=== PATIENT | male | born 1955 | race Caucasian/White ===

== ENCOUNTER → 2016-07-25 | Outpatient (CLI) | payer BC ==
--- NOTE | 2016-07-25 18:45 | MR ---
EXAMINATION TYPE: MR brain wo con DATE OF EXAM: 07/25/2016 3:37 PM COMPARISON: NONE HISTORY: Dizzy , Loss of Balance, Memory Loss, hearing loss both sides T1-weighted sagittal, T2, FLAIR, and diffusion axial, and T2 coronal coronal views of the brain are s ubmitted. There is no evidence of acute ischemia. The ventricles, basal cisterns, and sulci overlying the conv exities are consistent with the patient's age. There is no mass effect. Changes of chronic sinusitis noted. Craniocervical junction maintained. Sella turcica has a normal ap pearance. Findings suggest chronic right mastoiditis. There are a few scattered areas of abnormal signal within the white matter bilaterally which are not nonspecific. Small focal areas of abnormal signal involving the reynold most likely in the basis of tiny remote infar ction. IMPRESSION: 1. No acute intracranial process. 2. Nonspecific mild white matter changes. Remote microvascular ischemia favored over demyelinating di sease. Correlate clinically.
== END ==
LOC: RADMRIMAIN 14:34
PROVIDERS: ATTEND Psychiatry & Neurology Neurology
DX: F07.81 Postconcussional syndrome (principal)
CPT/HCPCS: 70551

== ENCOUNTER 2017-04-21 19:05 | Inpatient (IN) | payer BC ==
[2017-04-21] MEDS ORDERED: HYDROmorphone 1 MG/ML 1 ML SYRINGE IVP STA ×2 (19:27→21:12)
[2017-04-21] MEDS ORDERED: SODIUM CHLORIDE 0.9% 1,000 ML IV ONE (19:27)
[2017-04-21] MEDS ORDERED: SODIUM CHLORIDE 0.9% 500 ML IV ONE (19:27)
[2017-04-21] MEDS ORDERED: ONDANSETRON 4 MG/2 ML VIAL IVP STA (19:27)
[2017-04-21] MEDS ORDERED: RX INFO: IV CONTRAST WAS GIVEN 1 EACH MISC MISCELLANE PRN (19:29)
[2017-04-21] MEDS ORDERED: DIPH,PERTUS(ACELL)TETVAC-LF 0.5 ML VIAL IM ONE (19:29)
--- NOTE | 2017-04-21 20:17 | CT ---
EXAMINATION TYPE: CT ChestAbdPelvis w con DATE OF EXAM: 04/21/2017 COMPARISON: NONE HISTORY: Fall from roof. Back pain, left humeral pain, posterior head injury. CT DLP: 1051.80 mGycm Automated exposure control for dose reduction was used. CONTRAST: CT scan of the chest, abdomen and pelvis is performed without Oral Contrast and with IV Contrast, pat ient injected with 100 mL of Omnipaque 300. FINDINGS: The lungs are clear of infiltrate. There is no evidence of pleural effusion or pneumothorax. There is mild atelectasis at the left lateral lung base. Heart size is normal. Thoracic aorta is intact. Ther e is no mediastinal adenopathy. Liver spleen pancreas gallbladder appear normal. Bile ducts are not dilated. There is a 1 cm nodule in the left adrenal gland. Kidneys show satisfactory contrast opacification. T here is no hydronephrosis. There is no retroperitoneal adenopathy. There is no ascites. Appendix appears normal. There are numerous diverticula in the sigmoid colon. I see no intestinal wal l thickening. There are no dilated loops. Bladder distends smoothly. I see no pelvic mass. Thoracic a nd lumbar spine are intact. I see no rib fracture. Bony pelvis is intact. There is subcutaneous densi ty over the lower lumbar spine and pelvis. IMPRESSION: Subcutaneous posterior density over the pelvis is consistent with bruising. No fracture. No acute abnormality within the chest abdomen and pelvis.
[2017-04-21 20:34] LABS: Basophils # (A) 0.1 k/uL (0-0.2); Basophils % (A) 1 %; CH 27.4; CHCM 33.2; Eosinophils # (A) 0.2 k/uL (0-0.7); Eosinophils % (A) 2 %; HCT 39.3 % (39.0-53.0); HDW 2.69; HGB 13.3 gm/dL (13.0-17.5); Luc # (Auto) 0.17; Luc % (Auto) 2; Lymphocytes # (A) 2.3 k/uL (1.0-4.8); Lymphocytes % (A) 30 %; MCH 28.2 pg (25.0-35.0); MCV 82.9 fL (80.0-100.0); Mean Platelet Volume 7.8; Monocytes # (A) 0.4 k/uL (0-1.0); Monocytes % (A) 6 %; Neutrophils # (A) 4.7 k/uL (1.3-7.7); Neutrophils % (A) 60 %; RBC 4.74 m/uL (4.30-5.90); RDW 13.9 % (11.5-15.5); WBC 7.8 k/uL (3.8-10.6); WBC (Perox) 7.92
[2017-04-21 20:35] LABS: INR 1.1 (<1.2); Prothrombin Time 10.6 sec (9.0-12.0)
[2017-04-21 20:38] LABS: ALT 71 U/L (21-72); AST 45 U/L (17-59); Alcohol <10 mg/dL; Alkaline Phosphatase 70 U/L (38-126); Anion Gap 9 mmol/L; Blood Urea Nitrogen 18 mg/dL (9-20); Calcium 9.3 mg/dL (8.4-10.2); Carbon Dioxide 24 mmol/L (22-30); Chloride 106 mmol/L (98-107); Glucose 130 mg/dL (74-99); Non-African American GFR(MDRD) >60 (>60 ml/min/1.73 sqM); Potassium 4.2 mmol/L (3.5-5.1); Sodium 139 mmol/L (137-145); Total Bilirubin 0.6 mg/dL (0.2-1.3); Total Protein 7.4 g/dL (6.3-8.2)
[2017-04-21 20:55] LABS: Creatine Kinase 127 U/L (55-170)
[2017-04-21 21:06] LABS: Creatine Kinase MB 0.9 ng/mL (0.0-2.4); Troponin I <0.012 ng/mL (0.000-0.034)
--- NOTE | 2017-04-21 21:21 | CT ---
EXAMINATION TYPE: CT brain teo gzumán DATE OF EXAM: 04/21/2017 COMPARISON: NONE HISTORY: Fall from roof. Back pain, left humeral pain, posterior head injury. CT DLP: 1665.10 mGycm Automated exposure control for dose reduction was used. TECHNIQUE: CT scan of the head and cervical spine are performed without contrast. FINDINGS: There is some cerebral cortical atrophy. There is no mass effect nor midline shift. There is no sign of intracranial hemorrhage. The calvarium is intact. Cervical vertebra have normal alignment. There is hypertrophic anterior spurring from C4 to C7. Facet joints are intact. Skull base appears intact. There is no evidence of a fracture. There is endplate spur formation and cervical bony spinal stenosis at C3-4 C4-5. IMPRESSION: Mild atrophy. No acute intracranial abnormality. Spondylotic changes in the cervical spine. Mild cervical bony spinal stenosis. No fracture.
[2017-04-21 21:36] LABS: Appearance,Urine Clear (Clear); Bilirubin,Urine Negative (Negative); Glucose,Urine (UA) Negative (Negative); Ketones,Urine Negative (Negative); Leukocyte Esterase,Urine Negative (Negative); Nitrite,Urine Negative (Negative); PH, Urine 5.5 (5.0-8.0); Protein,Urine Trace (Negative); UA Billing (MACRO vs. MICRO) CHEM; Urobilinogen,Urine <2.0 mg/dL (<2.0)
[2017-04-21] MEDS ORDERED: KETOROLAC 30 MG/ML 1 ML VIAL IVP STA (21:43)
--- NOTE | 2017-04-21 21:56 | XR ---
EXAMINATION TYPE: XR pelvis AP view DATE OF EXAM: 04/21/2017 COMPARISON: NONE HISTORY: Pain TECHNIQUE: Single view FINDINGS: There is some narrowing of hip joint spaces. Pelvic ring is intact. I see no fracture. Ther e is contrast in the urinary bladder. IMPRESSION: Osteoarthritis in both hip joints. No fracture.
--- NOTE | 2017-04-21 21:58 | XR ---
EXAMINATION TYPE: XR chest 1V portable DATE OF EXAM: 04/21/2017 COMPARISON: 08/27/2012 HISTORY: Fell from the roof TECHNIQUE: Single frontal view of the chest is obtained. FINDINGS: There is some mild infiltrate at the lateral left lung base. Heart size is normal. There i s no pneumothorax. I see no definite pleural effusion. There is no heart failure. IMPRESSION: Mild pleural reaction at the left lung base is new compared to old exam. Normal heart.
--- NOTE | 2017-04-21 23:19 | ED ---
Fall HPI - General Chief Complaint: Fall Stated Complaint: Fall from roof Time Seen by Provider: 04/21/17 19:23 Source: patient, EMS Mode of arrival: EMS - History of Present Illness Initial Comments: 62 years old male he was in the bathroom of his house, he according to him he fell from a height of 78 when he was cleaning the coronaries. He landed on his back no complaining about the headache neck pain and the back pain there was a period of loss of consciousness. He denies any nausea any vomiting no chest pain or shortness of breath is complaining about the back pain, no neuro deficits - Related Data Home Medications Medication Instructions Recorded Confirmed Sertraline [Zoloft] 150 mg PO DAILY 09/13/16 04/22/17 metFORMIN HCL [Glucophage] 500 mg PO TID 09/13/16 04/22/17 Gabapentin [Neurontin] 100 mg PO HS 04/21/17 04/22/17 Pentoxifylline [TRENtal] 400 mg PO AC-TID 04/21/17 04/22/17 Previous Rx's Medication Instructions Recorded Docusate [Colace] 100 mg PO BID #60 cap 04/24/17 HYDROcodone/APAP 5-325MG [[place] 1 each PO Q4HR PRN #30 tab 04/24/17 5-325] Ibuprofen [Motrin] 400 mg PO Q6HR PRN tab 04/24/17 Meclizine [Antivert] 12.5 mg PO BID #60 tab 04/24/17 Polyethylene Glycol 3350 [Miralax] 17 gm PO DAILY PRN #30 pack 04/24/17 Allergies Allergy/AdvReac Type Severity Reaction Status Date / Time No Known Allergies Allergy Verified 04/22/17 00:19 Review of Systems ROS Statement: Those systems with pertinent positive or pertinent negative responses have been documented in the HPI. ROS Other: All systems not noted in ROS Statement are negative. Past Medical History Past Medical History: Diabetes Mellitus, Osteoarthritis (OA) Additional Past Medical History / Comment(s): UMBILICAL HERNIA, HEPATITIS C CARRIER., HX OF WAR INJURIES -MISSING 2 FINGERS RIGHT HAND, INJURY RIGHT SHOULDER AND SCHRAPNEL-HE WAS IN A COMA FOR 45 DAYS. History of Any Multi-Drug Resistant Organisms: None Reported Additional Past Surgical History / Comment(s): SURGERY DUE TO WAR INJURIES-2 FINGERS RIGHT HAND , RIGHT SHOULDER SURGERY AND SHRAPNEL REMOVAL. , COLONOSCOPY. Past Anesthesia/Blood Transfusion Reactions: Previous Problems w/ Anesthesia Additional Past Anesthesia/Blood Transfusion Reaction / Comment(s): DIFFICULTY WAKING UP AFTER COLONOSCOPY. Past Psychological History: Depression Smoking Status: Current every day smoker Past Alcohol Use History: Occasional Past Drug Use History: None Reported - Past Family History Brother(s) Family Medical History: Cancer, Diabetes Mellitus General Exam - General Exam Comments Initial Comments: General: The patient is awake and alert, severe pain and distress him a GCS is, Skin: Skin is warm and dry and no rashes or lesions are noted. Eye: Pupils are equal, round and reactive to light, extra-ocular movements are intact; there is normal conjunctiva bilaterally. Ears, nose, mouth and throat: There are moist mucous membranes and no oral lesions. Neck: The neck is tender at C4 and C5. Cardiovascular: There is a regular rate and rhythm. No murmur, rub or gallop is appreciated. Respiratory: To auscultation bilateral, no wheezing no rhonchi no distress respiratory webster noticed Gastrointestinal: Soft, non-distended, non-tender abdomen without masses or organomegaly noted. There is no rebound or guarding present. Bowel sounds are unremarkable. Back: There is tender at the lumbar spine and the lower thoracic spine Musculoskeletal: Mildly tender over the proximal humerus him a no neuro vascular deficit noticed. Neurological: CN II-XII intact, Cranial nerves III through XII are intact. There are no obvious motor or sensory deficits. Coordination appears grossly intact. Speech is normal. Psychiatric: Cooperative, he is in pain but psych exam is unremarkable Limitations: no limitations Course Vital Signs 04/21/17 04/21/17 04/21/17 19:16 19:45 20:05 Temperature 98.1 F Pulse Rate 53 L 63 59 L Pulse Rate [ Left Pulse Oximetery] Respiratory 18 18 18 Rate Blood Pressure 106/60 121/62 144/79 Blood Pressure [Left Arm] O2 Sat by Pulse 96 96 97 Oximetry 04/21/17 04/21/17 04/21/17 21:29 21:51 23:41 Temperature 97.8 F Pulse Rate 56 L 69 70 Pulse Rate [ Left Pulse Oximetery] Respiratory 18 18 18 Rate Blood Pressure 115/56 148/73 101/63 Blood Pressure [Left Arm] O2 Sat by Pulse 97 97 97 Oximetry 04/22/17 00:00 Temperature 97.9 F Pulse Rate Pulse Rate [ 72 Left Pulse Oximetery] Respiratory 18 Rate Blood Pressure Blood Pressure 113/62 [Left Arm] O2 Sat by Pulse 93 L Oximetry Patient Anya from CT, his CT of the head and neck is unremarkable, CT abdomen and and pelvis is unremarkable no fracture noticed considering his wall patient be admitted overnight to Dr. Harper service Medical Decision Making - Lab Data Result diagrams: 04/23/17 07:07 04/23/17 07:07 Lab Results 04/21/17 04/21/17 04/21/17 Range/Units 19:15 19:15 19:15 WBC 7.8 (3.8-10.6) k/uL RBC 4.74 (4.30-5.90) m/uL Hgb 13.3 (13.0-17.5) gm/dL Hct 39.3 (39.0-53.0) % MCV 82.9 (80.0-100.0) fL MCH 28.2 (25.0-35.0) pg MCHC 34.0 (31.0-37.0) g/dL RDW 13.9 (11.5-15.5) % Plt Count 148 L (150-450) k/uL Neutrophils % 60 % Lymphocytes % 30 % Monocytes % 6 % Eosinophils % 2 % Basophils % 1 % Neutrophils # 4.7 (1.3-7.7) k/uL Lymphocytes # 2.3 (1.0-4.8) k/uL Monocytes # 0.4 (0-1.0) k/uL Eosinophils # 0.2 (0-0.7) k/uL Basophils # 0.1 (0-0.2) k/uL PT (9.0-12.0) sec INR (<1.2) APTT (22.0-30.0) sec Sodium 139 (137-145) mmol/L Potassium 4.2 (3.5-5.1) mmol/L Chloride 106 (98-107) mmol/L Carbon Dioxide 24 (22-30) mmol/L Anion Gap 9 mmol/L BUN 18 (9-20) mg/dL Creatinine 1.07 (0.66-1.25) mg/dL Est GFR (MDRD) Af Amer >60 (>60 ml/min/1.73 sqM) Est GFR (MDRD) Non-Af >60 (>60 ml/min/1.73 sqM) Glucose 130 H (74-99) mg/dL POC Glucose (mg/dL) (75-99) mg/dL POC Glu Stair Builder ID Calcium 9.3 (8.4-10.2) mg/dL Total Bilirubin 0.6 (0.2-1.3) mg/dL AST 45 (17-59) U/L ALT 71 (21-72) U/L Alkaline Phosphatase 70 (38-126) U/L Total Creatine Kinase (55-170) U/L CK-MB (CK-2) (0.0-2.4) ng/mL CK-MB (CK-2) Rel Index Troponin I (0.000-0.034) ng/mL Total Protein 7.4 (6.3-8.2) g/dL Albumin 4.2 (3.5-5.0) g/dL Urine Color Urine Appearance (Clear) Urine pH (5.0-8.0) Ur Specific Alta (1.001-1.035) Urine Protein (Negative) Urine Glucose (UA) (Negative) Urine Ketones (Negative) Urine Blood (Negative) Urine Nitrite (Negative) Urine Bilirubin (Negative) Urine Urobilinogen (<2.0) mg/dL Ur Leukocyte Esterase (Negative) Urine Opiates Screen (NotDetected) Ur Oxycodone Screen (NotDetected) Urine Methadone Screen (NotDetected) Ur Propoxyphene Screen (NotDetected) Ur Barbiturates Screen (NotDetected) U Tricyclic Antidepress (NotDetected) Ur Phencyclidine Scrn (NotDetected) Ur Amphetamines Screen (NotDetected) U Methamphetamines Scrn (NotDetected) U Benzodiazepines Scrn (NotDetected) Urine Cocaine Screen (NotDetected) U Marijuana (THC) Screen (NotDetected) Serum Alcohol <10 mg/dL Blood Type A Positive Blood Type Confirm Blood Type Recheck CABO Indicated Antibody Screen NEGATIVE Spec Expiration Date 04/24/2017 - 231404/21/17 04/21/17 04/21/17 Range/Units 19:15 19:15 21:33 WBC (3.8-10.6) k/uL RBC (4.30-5.90) m/uL Hgb (13.0-17.5) gm/dL Hct (39.0-53.0) % MCV (80.0-100.0) fL MCH (25.0-35.0) pg MCHC (31.0-37.0) g/dL RDW (11.5-15.5) % Plt Count (150-450) k/uL Neutrophils % % Lymphocytes % % Monocytes % % Eosinophils % % Basophils % % Neutrophils # (1.3-7.7) k/uL Lymphocytes # (1.0-4.8) k/uL Monocytes # (0-1.0) k/uL Eosinophils # (0-0.7) k/uL Basophils # (0-0.2) k/uL PT 10.6 (9.0-12.0) sec INR 1.1 (<1.2) APTT 23.0 (22.0-30.0) sec Sodium (137-145) mmol/L Potassium (3.5-5.1) mmol/L Chloride (98-107) mmol/L Carbon Dioxide (22-30) mmol/L Anion Gap mmol/L BUN (9-20) mg/dL Creatinine (0.66-1.25) mg/dL Est GFR (MDRD) Af Amer (>60 ml/min/1.73 sqM) Est GFR (MDRD) Non-Af (>60 ml/min/1.73 sqM) Glucose (74-99) mg/dL POC Glucose (mg/dL) (75-99) mg/dL POC Glu Stair Builder ID Calcium (8.4-10.2) mg/dL Total Bilirubin (0.2-1.3) mg/dL AST (17-59) U/L ALT (21-72) U/L Alkaline Phosphatase (38-126) U/L Total Creatine Kinase 127 (55-170) U/L CK-MB (CK-2) 0.9 (0.0-2.4) ng/mL CK-MB (CK-2) Rel Index 0.7 Troponin I <0.012 (0.000-0.034) ng/mL Total Protein (6.3-8.2) g/dL Albumin (3.5-5.0) g/dL Urine Color Yellow Urine Appearance Clear (Clear) Urine pH 5.5 (5.0-8.0) Ur Specific Alta 1.050 H (1.001-1.035) Urine Protein Trace H (Negative) Urine Glucose (UA) Negative (Negative) Urine Ketones Negative (Negative) Urine Blood Negative (Negative) Urine Nitrite Negative (Negative) Urine Bilirubin Negative (Negative) Urine Urobilinogen <2.0 (<2.0) mg/dL Ur Leukocyte Esterase Negative (Negative) Urine Opiates Screen Not Detected (NotDetected) Ur Oxycodone Screen Not Detected (NotDetected) Urine Methadone Screen Not Detected (NotDetected) Ur Propoxyphene Screen Not Detected (NotDetected) Ur Barbiturates Screen Not Detected (NotDetected) U Tricyclic Antidepress Not Detected (NotDetected) Ur Phencyclidine Scrn Not Detected (NotDetected) Ur Amphetamines Screen Not Detected (NotDetected) U Methamphetamines Scrn Not Detected (NotDetected) U Benzodiazepines Scrn Not Detected (NotDetected) Urine Cocaine Screen Not Detected (NotDetected) U Marijuana (THC) Screen Not Detected (NotDetected) Serum Alcohol mg/dL Blood Type Blood Type Confirm Blood Type Recheck Antibody Screen Spec Expiration Date 04/21/17 04/22/17 04/22/17 Range/Units 23:46 06:58 11:57 WBC (3.8-10.6) k/uL RBC (4.30-5.90) m/uL Hgb (13.0-17.5) gm/dL Hct (39.0-53.0) % MCV (80.0-100.0) fL MCH (25.0-35.0) pg MCHC (31.0-37.0) g/dL RDW (11.5-15.5) % Plt Count (150-450) k/uL Neutrophils % % Lymphocytes % % Monocytes % % Eosinophils % % Basophils % % Neutrophils # (1.3-7.7) k/uL Lymphocytes # (1.0-4.8) k/uL Monocytes # (0-1.0) k/uL Eosinophils # (0-0.7) k/uL Basophils # (0-0.2) k/uL PT (9.0-12.0) sec INR (<1.2) APTT (22.0-30.0) sec Sodium (137-145) mmol/L Potassium (3.5-5.1) mmol/L Chloride (98-107) mmol/L Carbon Dioxide (22-30) mmol/L Anion Gap mmol/L BUN (9-20) mg/dL Creatinine (0.66-1.25) mg/dL Est GFR (MDRD) Af Amer (>60 ml/min/1.73 sqM) Est GFR (MDRD) Non-Af (>60 ml/min/1.73 sqM) Glucose (74-99) mg/dL POC Glucose (mg/dL) 223 H 276 H (75-99) mg/dL POC Glu Stair Builder ID Zoila Duron Yolanda Calcium (8.4-10.2) mg/dL Total Bilirubin (0.2-1.3) mg/dL AST (17-59) U/L ALT (21-72) U/L Alkaline Phosphatase (38-126) U/L Total Creatine Kinase (55-170) U/L CK-MB (CK-2) (0.0-2.4) ng/mL CK-MB (CK-2) Rel Index Troponin I (0.000-0.034) ng/mL Total Protein (6.3-8.2) g/dL Albumin (3.5-5.0) g/dL Urine Color Urine Appearance (Clear) Urine pH (5.0-8.0) Ur Specific [place] (1.001-1.035) Urine Protein (Negative) Urine Glucose (UA) (Negative) Urine Ketones (Negative) Urine Blood (Negative) Urine Nitrite (Negative) Urine Bilirubin (Negative) Urine Urobilinogen (<2.0) mg/dL Ur Leukocyte Esterase (Negative) Urine Opiates Screen (NotDetected) Ur Oxycodone Screen (NotDetected) Urine Methadone Screen (NotDetected) Ur Propoxyphene Screen (NotDetected) Ur Barbiturates Screen (NotDetected) U Tricyclic Antidepress (NotDetected) Ur Phencyclidine Scrn (NotDetected) Ur Amphetamines Screen (NotDetected) U Methamphetamines Scrn (NotDetected) U Benzodiazepines Scrn (NotDetected) Urine Cocaine Screen (NotDetected) U Marijuana (THC) Screen (NotDetected) Serum Alcohol mg/dL Blood Type Blood Type Confirm A Positive Blood Type Recheck Antibody Screen Spec Expiration Date Disposition Clinical Impression: Fall, Back injury, Neck pain, Shoulder pain Disposition: HOME SELF-CARE Condition: Good
[2017-04-21] MEDS ORDERED: ACETAMINOPHEN TAB 325 MG TAB PO PRN (23:20)
[2017-04-21] MEDS ORDERED: ONDANSETRON 4 MG/2 ML VIAL IVP PRN (23:20)
[2017-04-21] MEDS ORDERED: NALOXONE 0.4 MG/ML 1 ML VIAL IV PRN (23:20)
[2017-04-21] MEDS ORDERED: IBUPROFEN 400 MG TAB PO PRN (23:20)
--- NOTE | 2017-04-21 23:43 | XR ---
EXAMINATION TYPE: XR humerus LT DATE OF EXAM: 04/21/2017 COMPARISON: NONE HISTORY: Pain TECHNIQUE: 3 views FINDINGS: There is spurring on the olecranon process of the ulna. Shoulder joint and elbow joint appe ar intact. I see no fracture. IMPRESSION: Negative left humerus exam
[2017-04-21] MEDS: HYDROmorphone 0.5 MG/0.5 ML SYRINGE IVP PRN (23:59)
[2017-04-22 00:27] VITALS: BMI 25.7
[2017-04-22] MEDS: HYDROcodone/APAP 5-325MG 1 EACH TAB PO PRN ×5 (00:48→22:37)
[2017-04-22] MEDS: HYDROmorphone 0.5 MG/0.5 ML SYRINGE IVP PRN ×5 (02:47→19:44)
[2017-04-22 07:00] LABS: Glucose,Whole Blood 223 mg/dL (75-99)
--- NOTE | 2017-04-22 08:45 | P.GSHP ---
History of Present Illness H&P Date: 04/22/17 Chief Complaint: injuries from a fall. the recent is a 62-year-old white male who late yesterday evening fell from his roof. He was cleaning his gutters. He fell about 7-8 feet on his back. Mostly had some low back pain apparently quite severe. He is not sure. Loss consciousness but he thinks it the was less than a minute or so. He was brought to the emergency room. Had generalized aches and pains mostly in his lower back. No chest pain no abdominal pain no nausea or vomiting. Mild headache. He does complain of a little blurred vision. Has had chronic numbness of his feet but he thinks it maybe a little worse. He had a CT of the head and neck C-spine back the chest and abdomen and pelvis all of which were essentially negative. No acute fractures were noted. No intrathoracic or abdominal injuries were noted. Was admitted for observation. He still complains of some low back pain since his admission. He is tolerated a full meal this morning. Past history positive for diabetes mellitus depression. Medications include Zoloft metformin Neurontin Trental. Also has osteoarthritis. Had umbilical hernia repair. Has a history of hep C. Other surgery includes colonoscopy. 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 Right shoulder surgery. Had a colonoscopy in the past. Family history diabetes mellitus. The social history patient is . Smokes about a pack a day. Drinks alcohol occasionally. ALLERGIES none known. Systems review as above. No chest pain. No cough hemoptysis. No significant cardiac issues. No GI problems. No urinary symptoms. On examination the patient is awake alert in no distress. Head and neck are normal. Pupils are equal and reactive. Oral cavity is normal. No deviation of his tongue. Neck is supple with no tenderness no mass or organomegaly or lymphadenopathy. Heart regular rhythm lungs are clear to P&A. Abdomen is very soft and benign and nontender no mass or organomegaly. Back reveals tenderness mostly in the lower lumbar region and coccygeal area. The may have a little bruising. No big hematoma. Extremities has a superficial abrasion on his right elbow. Otherwise has full motion of his extremities. Good extremity pulses. 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 No focal deficits. X-rays were reviewed and reported as above. Hemoglobin is good. Urinalysis is normal. Impression. Low back injury from a fall. Questionable loss of consciousness and blurred vision. History of diabetes mellitus. Osteoarthritis. Depression. Recommendation. We will obtained a consult from primary care physician Dr. Muro to medical management. Also neurology. Possibly discharge in the next day or so of transfer to medical service. Past Medical History Past Medical History: Diabetes Mellitus, Osteoarthritis (OA) Additional Past Medical History / Comment(s): UMBILICAL HERNIA, HEPATITIS C CARRIER., HX OF WAR INJURIES -MISSING 2 FINGERS RIGHT HAND, INJURY RIGHT SHOULDER AND SCHRAPNEL-HE WAS IN A COMA FOR 45 DAYS. History of Any Multi-Drug Resistant Organisms: None Reported Additional Past Surgical History / Comment(s): SURGERY DUE TO WAR INJURIES-2 FINGERS RIGHT HAND , RIGHT SHOULDER SURGERY AND SHRAPNEL REMOVAL. , COLONOSCOPY. Past Anesthesia/Blood Transfusion Reactions: Previous Problems w/ Anesthesia Additional Past Anesthesia/Blood Transfusion Reaction / Comment(s): DIFFICULTY WAKING UP AFTER COLONOSCOPY. Past Psychological History: Depression Smoking Status: Current every day smoker Past Alcohol Use History: Occasional Additional Past Alcohol Use History / Comment(s): SMOKING SINCE 16 YRS OLD- QUIT FOR 5 YEARS. CURRENTLY SMOKING 3 CIGARETTES PER DAY. Past Drug Use History: None Reported - Past Family History Brother(s) Family Medical History: Cancer, Diabetes Mellitus Medications and Allergies Home Medications Medication Instructions Recorded Confirmed Type Sertraline [Zoloft] 150 mg PO DAILY 09/13/16 04/22/17 History metFORMIN HCL [Glucophage] 500 mg PO TID 09/13/16 04/22/17 History Gabapentin [Neurontin] 100 mg PO HS 04/21/17 04/22/17 History Pentoxifylline [TRENtal] 400 mg PO AC-TID 04/21/17 04/22/17 History Allergies Allergy/AdvReac Type Severity Reaction Status Date / Time No Known Allergies Allergy Verified 04/22/17 00:19 Surgical - Exam Vital Signs Temp Pulse Resp BP Pulse Ox 98.1 F 53 L 18 106/60 96 04/21/17 19:16 04/21/17 19:16 04/21/17 19:16 04/21/17 19:16 04/21/17 19:16 Results - Labs 04/21/17 19:15 04/21/17 19:15 Abnormal Lab Results - Last 24 Hours (Table) 04/21/17 04/21/17 04/21/17 Range/Units 19:15 19:15 21:33 Plt Count 148 L (150-450) k/uL Glucose 130 H (74-99) mg/dL POC Glucose (mg/dL) (75-99) mg/dL Ur Specific Maribel 1.050 H (1.001-1.035) Urine Protein Trace H (Negative) 04/22/17 Range/Units 06:58 Plt Count (150-450) k/uL Glucose (74-99) mg/dL POC Glucose (mg/dL) 223 H (75-99) mg/dL Ur Specific Maribel (1.001-1.035) Urine Protein (Negative) Diabetes panel 04/21/17 Range/Units 19:15 Sodium 139 (137-145) mmol/L Potassium 4.2 (3.5-5.1) mmol/L Chloride 106 (98-107) mmol/L Carbon Dioxide 24 (22-30) mmol/L BUN 18 (9-20) mg/dL Creatinine 1.07 (0.66-1.25) mg/dL Glucose 130 H (74-99) mg/dL Calcium 9.3 (8.4-10.2) mg/dL AST 45 (17-59) U/L ALT 71 (21-72) U/L Alkaline Phosphatase 70 (38-126) U/L Total Protein 7.4 (6.3-8.2) g/dL Albumin 4.2 (3.5-5.0) g/dL Calcium panel 04/21/17 Range/Units 19:15 Calcium 9.3 (8.4-10.2) mg/dL Albumin 4.2 (3.5-5.0) g/dL Pituitary panel 04/21/17 Range/Units 19:15 Sodium 139 (137-145) mmol/L Potassium 4.2 (3.5-5.1) mmol/L Chloride 106 (98-107) mmol/L Carbon Dioxide 24 (22-30) mmol/L BUN 18 (9-20) mg/dL Creatinine 1.07 (0.66-1.25) mg/dL Glucose 130 H (74-99) mg/dL Calcium 9.3 (8.4-10.2) mg/dL Adrenal panel 04/21/17 Range/Units 19:15 Sodium 139 (137-145) mmol/L Potassium 4.2 (3.5-5.1) mmol/L Chloride 106 (98-107) mmol/L Carbon Dioxide 24 (22-30) mmol/L BUN 18 (9-20) mg/dL Creatinine 1.07 (0.66-1.25) mg/dL Glucose 130 H (74-99) mg/dL Calcium 9.3 (8.4-10.2) mg/dL Total Bilirubin 0.6 (0.2-1.3) mg/dL AST 45 (17-59) U/L ALT 71 (21-72) U/L Alkaline Phosphatase 70 (38-126) U/L Total Protein 7.4 (6.3-8.2) g/dL Albumin 4.2 (3.5-5.0) g/dL
[2017-04-22] MEDS ORDERED: metFORMIN 500 MG TAB PO SCH (09:00)
[2017-04-22] MEDS: PENTOXIFYLLINE 400 MG TABLET.ER PO SCH ×3 (10:04→17:58)
[2017-04-22] MEDS: SERTRALINE 50 MG TAB PO SCH (10:04)
[2017-04-22 12:00] LABS: Glucose,Whole Blood 276 mg/dL (75-99)
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
[2017-04-22] MEDS: PANTOPRAZOLE 40 MG TABLET PO SCH (15:18)
[2017-04-22 17:01] LABS: Glucose,Whole Blood 246 mg/dL (75-99)
[2017-04-22] MEDS: INSULIN LISPRO (humaLOG) 300 UNIT/3 ML VIAL SQ SCH ×2 (17:58→20:30)
[2017-04-22] MEDS ORDERED: CALCIUM CARBONATE 500 MG CHEWABLE PO PRN (18:08)
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
[2017-04-22 20:24] LABS: Glucose,Whole Blood 190 mg/dL (75-99)
[2017-04-22] MEDS: HEPARIN SODIUM,PORCINE 5,000 UNIT/ML 1 ML VIAL SQ SCH (20:30)
[2017-04-22] MEDS: GABAPENTIN 100 MG CAP PO SCH (20:40)
[2017-04-22 21:00] VITALS: RESP 16
--- NOTE | 2017-04-22 21:19 | CT ---
EXAMINATION TYPE: CT thor lumbar spine wo con DATE OF EXAM: 04/22/2017 COMPARISON: NONE HISTORY: Fall from roof on 04-21-17. Lower back pain. CT DLP: 2523 mGycm Automated exposure control for dose reduction was used. FINDINGS: There is bilateral patchy atelectasis at the lung bases. The thoracic and lumbar vertebra have fairly normal alignment. There is no thoracic paraspinal mass. I see no compression fracture. There is mild to moderate hypertrophic spurring of the endplates in the mid thoracic spine. There is no paraspinal mass. The posterior elements are intact. There is developmentally small spinal canal in the lower yarely mbar spine. There is mild relative spinal stenosis at L4-5 L5-S1. There is mild anterior hypertrophic spurring at all levels of the lumbar spine. The sacroiliac joints appear intact. Visualized sacrum i s intact. IMPRESSION: NO FRACTURE. SPONDYLOTIC CHANGES IN THE THORACIC AND LUMBAR SPINE. MILD SPINAL STENOSIS AT L4-5 AND L 5-S1.
[2017-04-23] MEDS: HYDROcodone/APAP 5-325MG 1 EACH TAB PO PRN (05:05)
[2017-04-23 07:33] LABS: Glucose,Whole Blood 211 mg/dL (75-99)
[2017-04-23 07:42] LABS: Basophils % (A) 1 %; CH 27.8; Eosinophils # (A) 0.1 k/uL (0-0.7); Eosinophils % (A) 2 %; HCT 32.3 % (39.0-53.0); HDW 2.74; HGB 10.8 gm/dL (13.0-17.5); Luc # (Auto) 0.13; Luc % (Auto) 2; Lymphocytes # (A) 1.9 k/uL (1.0-4.8); Lymphocytes % (A) 23 %; MCH 28.2 pg (25.0-35.0); MCHC 33.3 g/dL (31.0-37.0); MCV 84.8 fL (80.0-100.0); Monocytes # (A) 0.4 k/uL (0-1.0); Monocytes % (A) 5 %; Neutrophils # (A) 5.5 k/uL (1.3-7.7); Neutrophils % (A) 68 %; RBC 3.81 m/uL (4.30-5.90); RDW 14.1 % (11.5-15.5); WBC (Perox) 8.72
[2017-04-23 07:54] LABS: Anion Gap 9 mmol/L; Blood Urea Nitrogen 17 mg/dL (9-20); Calcium 8.8 mg/dL (8.4-10.2); Carbon Dioxide 20 mmol/L (22-30); Chloride 109 mmol/L (98-107); Glucose 221 mg/dL (74-99); Non-African American GFR(MDRD) >60 (>60 ml/min/1.73 sqM); Potassium 4.1 mmol/L (3.5-5.1); Sodium 138 mmol/L (137-145)
[2017-04-23] MEDS: PANTOPRAZOLE 40 MG TABLET PO SCH (08:15)
[2017-04-23] MEDS: INSULIN LISPRO (humaLOG) 300 UNIT/3 ML VIAL SQ SCH ×4 (08:15→20:22)
[2017-04-23] MEDS: PENTOXIFYLLINE 400 MG TABLET.ER PO SCH ×3 (08:16→17:11)
[2017-04-23] MEDS: SERTRALINE 50 MG TAB PO SCH (08:16)
[2017-04-23] MEDS: HEPARIN SODIUM,PORCINE 5,000 UNIT/ML 1 ML VIAL SQ SCH ×2 (08:16→20:22)
[2017-04-23] MEDS: HYDROmorphone 0.5 MG/0.5 ML SYRINGE IVP PRN ×2 (08:25→17:11)
--- NOTE | 2017-04-23 10:53 | P.PN ---
Subjective Progress Note Date: 04/23/17 04/22/2017 This is a 62 year old male who presented to the emergency room on 04/21/2017 following a fall. The patient states is going to clean his gutters and leaned a ladder up against his roof. He states he put 1 foot on the roof and when he went to put his other foot on the roof the ladder fell from behind him he started falling. He states he grabbed ahold of his gutter and swung into the house before falling on the ground. In the emergency room a chest x-ray was completed which was unremarkable. Computed tomography scan of the brain and C-spine was completed which was negative for any acute process. A pelvic x-ray was completed which was negative for fracture. It did show osteoarthritis in both hip joints. A computed tomography scan of the chest abdomen and pelvis was completed which showed subcutaneous posterior density over the pelvis which was consistent with bruising. It was negative for a fracture or any other acute abnormalities. An x-ray of the left humerus was completed which was negative for fracture. The patient was admitted to observation under the care of Dr. Harper. Dr. Muro was consulted for medical management. Consults were also placed to neurology. 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 The patient states he smokes cigarettes and usually it is only 3 cigarettes a day. Patient states sometimes he will smoke up to 6 cigarettes a day depending on his stress level. The patient was seen and evaluated at the bedside. He states his pain is well controlled. He has multiple abrasions. His right elbow is covered with gauze. He states it hurts to take a deep breath. He has a large bruise to his back. He states he is having blurred vision and is unable to read the communication board on the wall in his room. He states the left eye is worse than the right. He is tolerating a regular diet without nausea or vomiting. He denies any nicotine cravings. 04/23/2017 Patient seen and examined at the bedside this morning. He states his pain is starting to get a little better. He states his balance is still off and he is still having problems with double vision. Neurology has been consulted. A lumbar spine CT was completed which was negative for fracture. It did show spondylotic changes in the thoracic and lumbar spine and mild spinal stenosis at L4-5 and L5-S1. He is tolerating an oral diet without nausea or vomiting. The patient states he has not had a bowel movement since he came to the hospital and is starting to feel a little constipated. He states he had 2 prune juice's with his breakfast. His vital signs remain stable. His last blood pressure reading is 123/60. He is afebrile and maintaining an oxygen saturation greater than 92% on room air. Objective - Vital Signs Vital signs: Vital Signs Temp 97.6 F 04/23/17 07:00 Pulse 88 04/23/17 07:00 Resp 16 04/23/17 07:00 BP 123/60 04/23/17 07:00 Pulse Ox 93 L 04/23/17 07:00 Intake & Output 04/22/17 04/23/17 04/23/17 18:59 06:59 18:59 Intake Total 840 940 Balance 840 940 Intake: Oral 840 940 Other: Voiding Method Toilet # Voids 1 - Exam GENERAL: Alert and oriented. Appears in no acute distress. Pleasant. RESPIRATORY: Lungs clear bilaterally. No use of accessory muscles. Patient maintaining oxygen saturation greater than 92%. CARDIOVASCULAR: S1 and S2 noted. No murmurs auscultated. No JVD noted. EXTREMITIES: No edema noted. Palpable pedal pulses +2. Amputation of 2 fingers on right hand ABDOMEN: No distention noted. Abdomen soft and round. Normal active bowel sounds auscultated 4 quadrants. No pain or tenderness noted upon palpation. SKIN: Large bruise noted to back. Multiple abrasions throughout body. Gauze dressing to right elbow - Labs CBC & Chem 7: 04/23/17 07:07 04/23/17 07:07 Labs: Abnormal Lab Results - Last 24 Hours (Table) 04/22/17 04/22/17 04/22/17 Range/Units 11:57 16:55 20:23 RBC (4.30-5.90) m/uL Hgb (13.0-17.5) gm/dL Hct (39.0-53.0) % Plt Count (150-450) k/uL Chloride (98-107) mmol/L Carbon Dioxide (22-30) mmol/L Glucose (74-99) mg/dL POC Glucose (mg/dL) 276 H 246 H 190 H (75-99) mg/dL 04/23/17 04/23/17 04/23/17 Range/Units 07:07 07:07 07:28 RBC 3.81 L (4.30-5.90) m/uL Hgb 10.8 L (13.0-17.5) gm/dL Hct 32.3 L (39.0-53.0) % Plt Count 122 L (150-450) k/uL Chloride 109 H (98-107) mmol/L Carbon Dioxide 20 L (22-30) mmol/L Glucose 221 H (74-99) mg/dL POC Glucose (mg/dL) 211 H (75-99) mg/dL Assessment and Plan Plan: ASSESSMENT: -Fall from roof, imaging negative for acute process -Back and neck pain, s/p fall from roof -Blurred vision, acute onset, neurology on consult -Tobacco abuse, patient is a current cigarette smoker -History of depression -Diabetes mellitus, type II -History of hepatitis C PLAN: -Management per Dr. Harper -Neurology on consult. Await further recommendations -Resume home meds as appropriate -Monitor labs -Pain control -Regular diet -Incentive spirometer 10 times an hour while awake -GI prophylaxis: Protonix 40mg PO daily -DVT prophylaxis: Heparin 5000 units subcu every 12 hours -Monitor vital signs and address as appropriate -Monitor capillary blood glucose -Continue Humalog sliding scale before meals and at bedtime The above impression and plan of care have been discussed and directed by signing physician. Alice Singh, nurse practitioner, acting as scribe for signing physician.
[2017-04-23 12:04] LABS: Glucose,Whole Blood 286 mg/dL (75-99)
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
[2017-04-23 17:08] LABS: Glucose,Whole Blood 245 mg/dL (75-99)
--- NOTE | 2017-04-23 20:04 | P.PN ---
Subjective Progress Note Date: 04/23/17 The patient is a 62-year-old man who fell off a roof onto his back and head falling 15 feet from the air. And is laying in bed appears to be comfortable. His still have some back pain and numbness in the legs. Headache is gone. Lanes of some dizziness. Was seen by Dr. Pulliam and he will follow up with him outpatient. The patient had a CT of the lumbar thoracic or lumbar spine which showed some spondylitic changes and mild spinal stenosis. There are no new symptoms. He had does have some blurred vision still. This can be further evaluated outpatient by ophthalmology. Objective - Vital Signs Vital signs: Vital Signs Temp 97.9 F 04/23/17 14:47 Pulse 65 04/23/17 16:00 Resp 16 04/23/17 16:00 BP 119/67 04/23/17 14:47 Pulse Ox 93 L 04/23/17 07:00 Intake & Output 04/23/17 04/23/17 04/24/17 06:59 18:59 06:59 Intake Total 940 Balance 940 Weight 90.7 kg Intake: Oral 940 Other: Voiding Method Toilet # Voids 1 2 - Constitutional General appearance: Present: average body habitus, cooperative - EENT Eyes: Present: PERRLA ENT: Present: hearing grossly normal - Respiratory Respiratory: bilateral: CTA - Cardiovascular Rhythm: regular - Neurologic Neurologic: Present: CNII-XII intact - Musculoskeletal Musculoskeletal: Present: strength equal bilaterally - Psychiatric Psychiatric: Present: A&O x's 3, appropriate affect - Labs CBC & Chem 7: 04/23/17 07:07 04/23/17 07:07 Labs: Abnormal Lab Results - Last 24 Hours (Table) 04/22/17 04/23/17 04/23/17 Range/Units 20:23 07:07 07:07 RBC 3.81 L (4.30-5.90) m/uL Hgb 10.8 L (13.0-17.5) gm/dL Hct 32.3 L (39.0-53.0) % Plt Count 122 L (150-450) k/uL Chloride 109 H (98-107) mmol/L Carbon Dioxide 20 L (22-30) mmol/L Glucose 221 H (74-99) mg/dL POC Glucose (mg/dL) 190 H (75-99) mg/dL 04/23/17 04/23/17 04/23/17 Range/Units 07:28 11:58 16:58 RBC (4.30-5.90) m/uL Hgb (13.0-17.5) gm/dL Hct (39.0-53.0) % Plt Count (150-450) k/uL Chloride (98-107) mmol/L Carbon Dioxide (22-30) mmol/L Glucose (74-99) mg/dL POC Glucose (mg/dL) 211 H 286 H 245 H (75-99) mg/dL Assessment and Plan (1) Back injury Status: Acute Code(s): S39.92XA - UNSPECIFIED INJURY OF LOWER BACK, INITIAL ENCOUNTER (2) Fall Status: Acute Plan: The patient is a 62-year-old man with history of fall from ladder a distance of 15 feet. He has had a CT of the lumbar spine which did not reveal any fracture. There was some spondylitic changes and mild spinal stenosis. He has been evaluated by orthopedic surgery Dr. Pulliam. He will he can follow-up with Dr. Pulliam outpatient. The patient complains of some dizziness and he may benefit from some meclizine. His visual blurring should be further evaluated with ophthalmology evaluation.
[2017-04-23 20:21] LABS: Glucose,Whole Blood 244 mg/dL (75-99)
[2017-04-23] MEDS: GABAPENTIN 100 MG CAP PO SCH (20:22)
[2017-04-24 07:10] LABS: Glucose,Whole Blood 178 mg/dL (75-99)
[2017-04-24] MEDS: INSULIN LISPRO (humaLOG) 300 UNIT/3 ML VIAL SQ SCH ×2 (07:30→12:41)
[2017-04-24] MEDS: HEPARIN SODIUM,PORCINE 5,000 UNIT/ML 1 ML VIAL SQ SCH (07:30)
[2017-04-24] MEDS: PENTOXIFYLLINE 400 MG TABLET.ER PO SCH ×2 (07:30→12:41)
[2017-04-24] MEDS: PANTOPRAZOLE 40 MG TABLET PO SCH (07:30)
[2017-04-24] MEDS: SERTRALINE 50 MG TAB PO SCH (07:31)
[2017-04-24 07:39] VITALS: BP 120/70; TEMP 97.5
[2017-04-24] MEDS ORDERED: MECLIZINE 12.5 MG TAB PO PRN (08:06)
[2017-04-24] MEDS ORDERED: MECLIZINE 12.5 MG TAB PO STA (08:06)
[2017-04-24] MEDS ORDERED: BISACODYL 10 MG SUPP RECTAL PRN (08:19)
[2017-04-24] MEDS ORDERED: DOCUSATE 100 MG CAP PO SCH (09:00)
[2017-04-24] MEDS ORDERED: POLYETHYLENE GLYCOL 3350 17 GM POWD.PACK PO SCH (09:00)
[2017-04-24] MEDS ORDERED: BISACODYL 10 MG SUPP RECTAL STA (09:23)
[2017-04-24 11:18] VITALS: PULSE 65
--- NOTE | 2017-04-24 11:25 | P.DS ---
Providers Date of admission: 04/22/17 14:13 Expected date of discharge: 04/24/17 Attending physician: Jose Muro Consults: 04/22/17 08:31 Consult Physician Routine Consulting Provider: Deandre Smith Consult Reason/Comments: head injury-blurred vision Do you want consulting provider notified?: Yes 04/22/17 08:34 Consult Physician Routine Consulting Provider: Jose Muro Consult Reason/Comments: medical mx Do you want consulting provider notified?: Yes 04/23/17 08:45 Consult Physician Routine Consulting Provider: Alejandra Pulliam Consult Reason/Comments: back injury Do you want consulting provider notified?: Yes Primary care physician: Jose Muro [facility] Course: This is a 62 year old male who presented to the emergency room on 04/21/2017 following a fall. The patient states is going to clean his gutters and leaned a ladder up against his roof. He states he put 1 foot on the roof and when he went to put his other foot on the roof the ladder fell from behind him he started falling. He states he grabbed ahold of his gutter and swung into the house before falling on the ground. In the emergency room a chest x-ray was completed which was unremarkable. Computed tomography scan of the brain and C-spine was completed which was negative for any acute process. A pelvic x-ray was completed which was negative for fracture. It did show osteoarthritis in both hip joints. A computed tomography scan of the chest abdomen and pelvis was completed which showed subcutaneous posterior density over the pelvis which was consistent with bruising. It was negative for a fracture or any other acute abnormalities. An x-ray of the left humerus was completed which was negative for fracture. The patient was admitted to observation under the care of Dr. Harper. Dr. Muro was consulted for medical management. Consults were also placed to neurology. The patient was moved to a medical floor and Dr Muro took over the care of the patient. 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 The patient states he smokes cigarettes and usually it is only 3 cigarettes a day. Patient states sometimes he will smoke up to 6 cigarettes a day depending on his stress level. The patient complained of blurred vision throughout his hospitalization. He was seen by neurology. The patient is to see an supervisor instrument mechanics outpatient as recommended by neurology. He also continues to complain of dizziness. He was started on Antivert per neurology's recommendations. His pain has been well controlled during his admission. He was taking oral narcotics, however he became constipated and has since stopped taking them. He was able to have a bowel movement on the morning of discharge. Orthopedics was also asked to see the patient during his hospitalization. A lumbar spine CT was completed which was negative for fracture. It did show spondylotic changes in the thoracic and lumbar spine and mild spinal stenosis at L4-5 and L5-S1. A lumbar brace was recommended for his soft tissue injuries and ordered by orthopedics. The patient is to follow-up with them in 2 weeks. The patient's vital signs have remained stable. His lab work has been stable. He's tolerating a diet without nausea or vomiting. The patient is stable for discharge home today per Dr. Muro. He is to follow up outpatient with orthopedics, neurology, and ophthalmology. DISCHARGE DIAGNOSIS: -Fall from roof, imaging negative for acute process -Back and neck pain, s/p fall from roof, improving -Blurred vision, present on admission, improving, patient to follow up with ophthalmology -Constipation, secondary to narcotics, resolved -Tobacco abuse, patient is a current cigarette smoker -History of depression -Diabetes mellitus, type II -History of hepatitis C The above impression and plan of care have been discussed and directed by signing physician. Alice Singh, nurse practitioner, acting as scribe for signing physician. Patient Condition at Discharge: Stable Plan - Discharge Summary New Discharge Prescriptions: New Docusate [Colace] 100 mg PO BID #60 cap HYDROcodone/APAP 5-325MG [Starlight 5-325] 1 each PO Q4HR PRN #30 tab PRN Reason: Moderate Pain Ibuprofen [Motrin] 400 mg PO Q6HR PRN tab PRN Reason: Mild Pain Or Fever > 100.5 Meclizine [Antivert] 12.5 mg PO BID #60 tab Polyethylene Glycol 3350 [Miralax] 17 gm PO DAILY PRN #30 pack PRN Reason: Constipation Continue Sertraline [Zoloft] 150 mg PO DAILY metFORMIN HCL [Glucophage] 500 mg PO TID Pentoxifylline [TRENtal] 400 mg PO AC-TID Gabapentin [Neurontin] 100 mg PO HS Discharge Medication List Sertraline [Zoloft] 150 mg PO DAILY 09/13/16 [History] metFORMIN HCL [Glucophage] 500 mg PO TID 09/13/16 [History] Gabapentin [Neurontin] 100 mg PO HS 04/21/17 [History] Pentoxifylline [TRENtal] 400 mg PO AC-TID 04/21/17 [History] Docusate [Colace] 100 mg PO BID #60 cap 04/24/17 [Rx] HYDROcodone/APAP 5-325MG [Starlight 5-325] 1 each PO Q4HR PRN #30 tab 04/24/17 [Rx] Ibuprofen [Motrin] 400 mg PO Q6HR PRN tab 04/24/17 [Rx] Meclizine [Antivert] 12.5 mg PO BID #60 tab 04/24/17 [Rx] Polyethylene Glycol 3350 [Miralax] 17 gm PO DAILY PRN #30 pack 04/24/17 [Rx] Follow up Appointment(s)/Referral(s): Jose Muro DO [Primary Care Provider] - 1-2 days Teodoro Guo PAC [PHYSICIAN EMERY GRINDER] - 2 Weeks (Patient may follow-up with Teodoro Guo PA-C or Dr. Farzad Pulliam at [facility] in 2 weeks following discharge. ) [facility], [NON-STAFF] - Delores Smith MD [STAFF PHYSICIAN] - As Needed Activity/Diet/Wound Care/Special Instructions: Patient needs to make an appointment to see an supervisor instrument mechanics of his choice within 1 week of discharge for his blurred vision Discharge Disposition: HOME SELF-CARE
[2017-04-24 11:58] LABS: Glucose,Whole Blood 257 mg/dL (75-99)
== END 2017-04-24 16:15 | disposition home or self-care (01) | DRG 605 ==
LOC: EC 19:05 → 3OBS 23:23 → OBSVTOIN 04-22 14:13 → 3SUR 04-22 17:37
PROVIDERS: ADMIT Family Medicine; ATTEND Family Medicine
DX: S20.229A Contusion of unspecified back wall of thorax, initial encounter (principal); S09.90XA Unspecified injury of head, initial encounter; M48.02 Spinal stenosis, cervical region; F32.9 Major depressive disorder, single episode, unspecified; H53.2 Diplopia; E11.9 Type 2 diabetes mellitus without complications; F17.210 Nicotine dependence, cigarettes, uncomplicated; S30.0XXA Contusion of lower back and pelvis, initial encounter; M16.0 Bilateral primary osteoarthritis of hip; S50.311A Abrasion of right elbow, initial encounter; M48.07 Spinal stenosis, lumbosacral region; B19.20 Unspecified viral hepatitis C without hepatic coma; S00.83XA Contusion of other part of head, initial encounter; R42 Dizziness and giddiness; K59.03 Drug induced constipation; F07.81 Postconcussional syndrome; R20.0 Anesthesia of skin; T40.605A Adverse effect of unspecified narcotics, initial encounter; M50.30 Other cervical disc degeneration, unspecified cervical region; Z79.899 Other long term (current) drug therapy; Z89.021 Acquired absence of right finger(s); Z83.3 Family history of diabetes mellitus; Z80.9 Family history of malignant neoplasm, unspecified; Z87.19 Personal history of other diseases of the digestive system; Z79.84 Long term (current) use of oral hypoglycemic drugs; W11.XXXA Fall on and from ladder, initial encounter; W13.2XXA Fall from, out of or through roof, initial encounter
CPT/HCPCS: 36415; 70450; 71010; 71260; 72125; 72128; 72131; 72170; 74177; 80048; 80053; 80306; 80320; 81003; 82550; 82553; 84484; 85025; 85610; 85730; 86850; 86900; 86901; 90715; 96361; 96372; 96374; 96375; 96376; 99285

== ENCOUNTER → 2020-08-08 | Outpatient (CLI) | payer BC ==
--- NOTE | 2020-08-08 16:12 | XR ---
EXAMINATION TYPE: XR chest 2V DATE OF EXAM: 08/08/2020 COMPARISON: Prior chest x-ray 04/21/2017 HISTORY: Pain and shortness of breath TECHNIQUE: Frontal and lateral views of the chest are obtained. FINDINGS: There is no focal air space opacity, pleural effusion, or pneumothorax seen. The cardiac silhouette size is within normal limits. The osseous structures are intact, there is thoracic spond ylosis, flowing anterior aspects with preservation of disc spaces suggest diffuse idiopathic skeletal hyperostosis, calcified intervertebral disc noted at the lower thoracic spine. IMPRESSION: No acute cardiopulmonary process. Additional findings above.
--- NOTE | 2020-08-08 16:14 | XR ---
Thoracic spine HISTORY: Pain and shortness of breath 3 views thoracic spine correlated prior exam 04/22/2017 CT Flowing anterior osteophytes with preservation of disc space again noted. Calcified intervertebral di sc is seen as on previous exam T10-11. Thoracic vertebral bodies show preserved height, alignment, danelle ne mineralization. IMPRESSION: Correlate for diffuse idiopathic skeletal hyperostosis.
== END | disposition home or self-care (01) ==
LOC: RADXRMAIN 15:35
PROVIDERS: ATTEND Nurse Practitioner Family
DX: R06.02 Shortness of breath (principal)
CPT/HCPCS: 71046; 72070

== ENCOUNTER 2021-09-26 17:40 | Emergency (ER) | payer BC, MEDICARE ==
[2021-09-26 17:50] VITALS: TEMP 97.1
[2021-09-26 19:10] LABS: Glucose,Whole Blood 382 mg/dL (75-99)
--- NOTE | 2021-09-26 19:45 | ED ---
General Adult HPI - General Chief complaint: Recheck/Abnormal Lab/Rx Stated complaint: Hyperglycemia Time Seen by Provider: 09/26/21 19:28 Source: patient Mode of arrival: ambulatory Limitations: no limitations - History of Present Illness Initial comments: Dictation was produced using [employer] dictation software. please excuse any grammatical, word or spelling errors. Chief Complaint: 66-year-old insulin-dependent diabetic presents to the ER for paresthesias to the hands and feet and hyperglycemia History of Present Illness: Is a 66-year-old male he is insulin-dependent diabetic he states she's been compliant with his diabetes medications. Patient states that today he began experiencing paresthesias to his hands and feet. He has had similar issue several years ago when his blood sugar was found to be high. Patient checked his blood sugar is 483 at home. She denies any chest pain or shortness of breath he states he recovered from a cold recently. At the bedside he denies any chest pain or abdominal pain. Constitutional symptoms. The ROS documented in this emergency department record has been reviewed and confirmed by me. Those systems with pertinent positive or negative responses have been documented in the HPI. All other systems are other negative and/or noncontributory. PHYSICAL EXAM: General Impression: Alert and oriented x3, not in acute distress HEENT: Normocephalic atraumatic, extra-ocular movements intact, pupils equal and reactive to light bilaterally, mucous membranes moist. Cardiovascular: Heart regular rate and rhythm Chest: Able to complete full sentences, no retractions, no tachypnea Abdomen: abdomen soft, non-tender, non-distended, no organomegaly Musculoskeletal: Pulses present and equal in all extremities, no peripheral edema Motor: no focal deficits noted Neurological: CN II-XII grossly intact, no focal motor or sensory deficits noted Skin: Intact with no visualized rashes Psych: Normal affect and mood ED course: 66-year-old male presents to the emergency department for clinical presentation consistent with neuropathy. Vital signs upon arrival are within acceptable limits. Laboratory evaluation obtained. CBC metabolic panel is unremarkable. Blood sugar is 280. Patient related bedside 8:15 PM found to be stable medical condition. Patient's well-appearing. His sugar seems to be within a reasonable limit. He has insulin and a glucometer at home. Patient's neuropathies likely secondary to diabetic neuropathy. Patient given intravenous fluids. Patient counseled on diabetic neuropathy and that tender glucose control can reverse some of the symptoms. He is encouraged to follow-up with his primary care doctor for better control of his diabetes with his primary care doctor. Patient reevaluated bedside 8:15 PM. He states that a lot of his symptoms are improving after IV fluids. - Related Data Home Medications Medication Instructions Recorded Confirmed Sertraline [Zoloft] 150 mg PO DAILY 09/13/16 04/22/17 metFORMIN HCL [Glucophage] 500 mg PO TID 09/13/16 04/22/17 Gabapentin [Neurontin] 100 mg PO HS 04/21/17 04/22/17 Pentoxifylline [TRENtal] 400 mg PO AC-TID 04/21/17 04/22/17 Previous Rx's Medication Instructions Recorded Docusate [Colace] 100 mg PO BID #60 cap 04/24/17 HYDROcodone/APAP 5-325MG [[place] 1 each PO Q4HR PRN #30 tab 04/24/17 5-325] Ibuprofen [Motrin] 400 mg PO Q6HR PRN tab 04/24/17 Meclizine [Antivert] 12.5 mg PO BID #60 tab 04/24/17 polyethylene glycoL 3350 [Miralax] 17 gm PO DAILY PRN #30 pack 04/24/17 Allergies Allergy/AdvReac Type Severity Reaction Status Date / Time No Known Allergies Allergy Verified 09/26/21 17:48 Review of Systems ROS Statement: Those systems with pertinent positive or pertinent negative responses have been documented in the HPI. ROS Other: All systems not noted in ROS Statement are negative. Past Medical History Past Medical History: Diabetes Mellitus, Osteoarthritis (OA) Additional Past Medical History / Comment(s): UMBILICAL HERNIA, HEPATITIS C CARRIER., HX OF WAR INJURIES -MISSING 2 FINGERS RIGHT HAND, INJURY RIGHT SHOULDER AND SCHRAPNEL-HE WAS IN A COMA FOR 45 DAYS. History of Any Multi-Drug Resistant Organisms: None Reported Additional Past Surgical History / Comment(s): SURGERY DUE TO WAR INJURIES-2 FINGERS RIGHT HAND , RIGHT SHOULDER SURGERY AND SHRAPNEL REMOVAL. , COLONOSCOPY. Past Anesthesia/Blood Transfusion Reactions: Previous Problems w/ Anesthesia Additional Past Anesthesia/Blood Transfusion Reaction / Comment(s): DIFFICULTY WAKING UP AFTER COLONOSCOPY. Past Psychological History: Depression Smoking Status: Current some day smoker Past Alcohol Use History: Occasional Past Drug Use History: None Reported - Past Family History Brother(s) Family Medical History: Cancer, Diabetes Mellitus General Exam Limitations: no limitations Course Vital Signs 09/26/21 17:48 Temperature 97.1 F L Pulse Rate 72 Respiratory 16 Rate Blood Pressure 140/76 O2 Sat by Pulse 98 Oximetry Medical Decision Making - Lab Data Result diagrams: 09/26/21 19:51 09/26/21 19:51 Lab Results 09/26/21 09/26/21 09/26/21 Range/Units 19:08 19:50 19:51 WBC 7.5 (3.8-10.6) k/uL RBC 4.74 (4.30-5.90) m/uL Hgb 13.5 (13.0-17.5) gm/dL Hct 39.7 (39.0-53.0) % MCV 83.7 (80.0-100.0) fL MCH 28.4 (25.0-35.0) pg MCHC 34.0 (31.0-37.0) g/dL RDW 13.6 (11.5-15.5) % Plt Count 160 (150-450) k/uL MPV 8.4 Neutrophils % 56 % Lymphocytes % 35 % Monocytes % 4 % Eosinophils % 2 % Basophils % 1 % Neutrophils # 4.2 (1.3-7.7) k/uL Lymphocytes # 2.6 (1.0-4.8) k/uL Monocytes # 0.3 (0-1.0) k/uL Eosinophils # 0.1 (0-0.7) k/uL Basophils # 0.1 (0-0.2) k/uL Sodium (137-145) mmol/L Potassium (3.5-5.1) mmol/L Chloride (98-107) mmol/L Carbon Dioxide (22-30) mmol/L Anion Gap mmol/L BUN (9-20) mg/dL Creatinine (0.66-1.25) mg/dL Est GFR (CKD-EPI)AfAm (>60 ml/min/1.73 sqM) Est GFR (CKD-EPI)NonAf (>60 ml/min/1.73 sqM) Glucose (74-99) mg/dL POC Glucose (mg/dL) 382 H 307 H (75-99) mg/dL POC Glu Lacing Presser ID Robby Woodard Nicole Callewaert, Ashley Calcium (8.4-10.2) mg/dL 09/26/21 Range/Units 19:51 WBC (3.8-10.6) k/uL RBC (4.30-5.90) m/uL Hgb (13.0-17.5) gm/dL Hct (39.0-53.0) % MCV (80.0-100.0) fL MCH (25.0-35.0) pg MCHC (31.0-37.0) g/dL RDW (11.5-15.5) % Plt Count (150-450) k/uL MPV Neutrophils % % Lymphocytes % % Monocytes % % Eosinophils % % Basophils % % Neutrophils # (1.3-7.7) k/uL Lymphocytes # (1.0-4.8) k/uL Monocytes # (0-1.0) k/uL Eosinophils # (0-0.7) k/uL Basophils # (0-0.2) k/uL Sodium 138 (137-145) mmol/L Potassium 4.5 (3.5-5.1) mmol/L Chloride 102 (98-107) mmol/L Carbon Dioxide 28 (22-30) mmol/L Anion Gap 8 mmol/L BUN 15 (9-20) mg/dL Creatinine 0.83 (0.66-1.25) mg/dL Est GFR (CKD-EPI)AfAm >90 (>60 ml/min/1.73 sqM) Est GFR (CKD-EPI)NonAf >90 (>60 ml/min/1.73 sqM) Glucose 280 H (74-99) mg/dL POC Glucose (mg/dL) (75-99) mg/dL POC Glu Lacing Presser ID Calcium 9.4 (8.4-10.2) mg/dL Disposition Clinical Impression: Diabetic neuropathy Disposition: HOME SELF-CARE Condition: Good Instructions (If sedation given, give patient instructions): Diabetic Perip heral Neuropathy (DC) Is patient prescribed a controlled substance at d/c from ED?: No Referrals: Jose Muro DO [Primary Care Provider] - 1-2 days
[2021-09-26 19:52] LABS: Glucose,Whole Blood 307 mg/dL (75-99)
[2021-09-26] MEDS ORDERED: SODIUM CHLORIDE 0.9% 1,000 ML IV STA (19:58)
[2021-09-26 20:08] LABS: African American GFR (CKD) >90 (>60 ml/min/1.73 sqM); Anion Gap 8 mmol/L; Blood Urea Nitrogen 15 mg/dL (9-20); Calcium 9.4 mg/dL (8.4-10.2); Carbon Dioxide 28 mmol/L (22-30); Chloride 102 mmol/L (98-107); Glucose 280 mg/dL (74-99); Non-African American GFR(CKD) >90 (>60 ml/min/1.73 sqM); Potassium 4.5 mmol/L (3.5-5.1); Sodium 138 mmol/L (137-145)
[2021-09-26 20:12] LABS: Basophils # (A) 0.1 k/uL (0-0.2); Basophils % (A) 1 %; Eosinophils # (A) 0.1 k/uL (0-0.7); Eosinophils % (A) 2 %; HCT 39.7 % (39.0-53.0); HGB 13.5 gm/dL (13.0-17.5); Lymphocytes # (A) 2.6 k/uL (1.0-4.8); Lymphocytes % (A) 35 %; MCH 28.4 pg (25.0-35.0); MCV 83.7 fL (80.0-100.0); Mean Platelet Volume 8.4; Monocytes # (A) 0.3 k/uL (0-1.0); Monocytes % (A) 4 %; Neutrophils # (A) 4.2 k/uL (1.3-7.7); Neutrophils % (A) 56 %; Platelet Count 160 k/uL (150-450); RBC 4.74 m/uL (4.30-5.90); RDW 13.6 % (11.5-15.5); WBC 7.5 k/uL (3.8-10.6)
[2021-09-26 21:29] VITALS: BP 136/69; PULSE 80; RESP 18
== END 2021-09-26 21:29 | disposition home or self-care (01) ==
LOC: EC 17:40
DX: E11.40 Type 2 diabetes mellitus with diabetic neuropathy, unspecified (principal)
CPT/HCPCS: 36415; 80048; 85025; 96360; 99283

== ENCOUNTER 2024-12-21 13:28 | Emergency (ER) | payer MEDICARE ==
[2024-12-21 13:32] VITALS: RESP 16
--- NOTE | 2024-12-21 14:27 | ED ---
General Adult HPI - General Chief complaint: Back Pain/Injury Stated complaint: Back pain Time Seen by Provider: 12/21/24 13:43 Source: patient, RN notes reviewed Mode of arrival: wheelchair Limitations: no limitations - History of Present Illness Initial comments: 69-year-old male presents to the emergency department for evaluation of back pain. He notes that it feels like muscle spasms. This been going on for 3 to 4 days. He was seen at outside facility for this. He notes that the pain is in both of his flanks and across his low back. He denies any loss of bowel or bladder function. Denies any saddle anesthesia. Denies recent fever, chills. He does note that he is a diabetic but he is not compliant with his medication. - Related Data Home Medications Medication Instructions Recorded Confirmed Sertraline [Zoloft] 150 mg PO DAILY 09/13/16 04/22/17 metFORMIN HCL [Glucophage] 500 mg PO TID 09/13/16 04/22/17 Gabapentin [Neurontin] 100 mg PO HS 04/21/17 04/22/17 Pentoxifylline [TRENtal] 400 mg PO AC-TID 04/21/17 04/22/17 Previous Rx's Medication Instructions Recorded Docusate [Colace] 100 mg PO BID #60 cap 04/24/17 HYDROcodone/APAP 5-325MG [[place] 1 each PO Q4HR PRN #30 tab 04/24/17 5-325] Ibuprofen [Motrin] 400 mg PO Q6HR PRN tab 04/24/17 Meclizine [Antivert] 12.5 mg PO BID #60 tab 04/24/17 polyethylene glycoL 3350 [Miralax] 17 gm PO DAILY PRN #30 pack 04/24/17 HYDROcodone/APAP 5-325MG [[place] 1 tab PO Q6HR PRN 3 Days #12 tab 12/21/24 5-325] Lidocaine 5% Patch [Lidoderm 5% 1 patch TOPICAL DAILY #30 patch 12/21/24 Patch] Allergies Allergy/AdvReac Type Severity Reaction Status Date / Time No Known Allergies Allergy Verified 12/21/24 13:32 Review of Systems ROS Statement: Those systems with pertinent positive or pertinent negative responses have been documented in the HPI. ROS Other: All systems not noted in ROS Statement are negative. Past Medical History Past Medical History: Diabetes Mellitus, Osteoarthritis (OA) Additional Past Medical History / Comment(s): UMBILICAL HERNIA, HEPATITIS C CARRIER., HX OF WAR INJURIES -MISSING 2 FINGERS RIGHT HAND, INJURY RIGHT SHOULDER AND SCHRAPNEL-HE WAS IN A COMA FOR 45 DAYS. History of Any Multi-Drug Resistant Organisms: None Reported Additional Past Surgical History / Comment(s): SURGERY DUE TO WAR INJURIES-2 FINGERS RIGHT HAND , RIGHT SHOULDER SURGERY AND SHRAPNEL REMOVAL. , COLONOSCOPY. Past Anesthesia/Blood Transfusion Reactions: Previous Problems w/ Anesthesia Additional Past Anesthesia/Blood Transfusion Reaction / Comment(s): DIFFICULTY WAKING UP AFTER COLONOSCOPY. Past Psychological History: Depression Smoking Status: Current some day smoker Past Alcohol Use History: Occasional Past Drug Use History: None Reported - Past Family History Brother(s) Family Medical History: Cancer, Diabetes Mellitus General Exam Limitations: no limitations General appearance: alert, in no apparent distress Head exam: Present: atraumatic, normocephalic, normal inspection Eye exam: Present: normal appearance, PERRL, EOMI. Absent: scleral icterus, conjunctival injection, periorbital swelling ENT exam: Present: normal exam, mucous membranes moist Neck exam: Present: normal inspection. Absent: tenderness, meningismus, lymphadenopathy Respiratory exam: Present: normal lung sounds bilaterally. Absent: respiratory distress, wheezes, rales, rhonchi, stridor Cardiovascular Exam: Present: regular rate, normal rhythm, normal heart sounds. Absent: systolic murmur, diastolic murmur, rubs, gallop, clicks Extremities exam: Present: normal inspection, full ROM, normal capillary refill. Absent: tenderness, pedal edema, joint swelling, calf tenderness Back exam: Present: tenderness, muscle spasm Neurological exam: Present: alert, oriented X3 Psychiatric exam: Present: normal affect, normal mood Skin exam: Present: warm, dry, intact, normal color. Absent: rash Course Vital Signs 12/21/24 12/21/24 12/21/24 13:29 18:39 19:54 Temperature 97.5 F L 97.7 F Pulse Rate 64 55 L 63 Respiratory 16 16 16 Rate Blood Pressure 92/54 156/85 141/77 O2 Sat by Pulse 95 99 98 Oximetry Medical Decision Making - Medical Decision Making Was pt. sent in by a medical professional or institution (, PA, MANAGER PARKING, urgent care, hospital, or longterm...) When possible be specific @ -No Did you speak to anyone other than the patient for history (EMS, parent, family, police, friend...)? What history was obtained from this source @ -No Did you review nursing and triage notes (agree or disagree)? Why? @ -I reviewed and agree with nursing and triage notes Were old charts reviewed (outside hosp., previous admission, EMS record, old EKG, old radiological studies, urgent care reports/EKG's, longterm records)? Report findings @ -No old charts were reviewed Differential Diagnosis (chest pain, altered mental status, abdominal pain women, abdominal pain men, vaginal bleeding, weakness, fever, dyspnea, syncope, headache, dizziness, GI bleed, back pain, seizure, CVA, palpatations, mental h ealth, musculoskeletal)? @ -Differential Back Pain: Strain, zoster, cauda equina syndrome, epidural abscess, vertebral osteomyelitis, discitis, fracture, subluxation, disc herniation, DJD, spinal st enosis, dissection, AAA, pancreatitis, peptic ulcer disease, pyelonephritis, kidney stone, this is not meant to be an all-inclusive list. EKG interpreted by me (3pts min.). @ -None X-rays interpreted by me (1pt min.). @ -Chest x-ray reveals no acute process CT interpreted by me (1pt min.). @ -CT of the abdomen pelvis reveals no evidence of acute process U/S interpreted by me (1pt. min.). @ -None done What testing was considered but not performed or refused? (CT, X-rays, U/S, labs)? Why? @ -None What meds were considered but not given or refused? Why? @ -None Did you discuss the management of the patient with other professionals (professionals i.e. , PA, MANAGER PARKING, lab, RT, psych nurse, manager social responsibility, pool technician, teacher, weapons officer naval activity, rifle case repairer)? Give summary @ -No Was smoking cessation discussed for >3mins.? @ -No Was critical care preformed (if so, how long)? @ -No Were there social determinants of health that impacted care today? How? (Homelessness, low income, unemployed, alcoholism, drug addiction, transportation, low edu. Level, literacy, decrease access to med. care, long-term, rehab)? @ -No Was there de-escalation of care discussed even if they declined (Discuss DNR or withdrawal of care, Hospice)? DNR status @ -No What co-morbidities impacted this encounter? (DM, HTN, Smoking, COPD, CAD, Cancer, CVA, ARF, Chemo, Hep., AIDS, mental health diagnosis, sleep apnea, morb id obesity)? @ -None Was patient admitted / discharged? Hospital course, mention meds given and rou te, prescriptions, significant lab abnormalities, going to OR and other pertinent info. @ -Discharge. Patient presented the emergency department for evaluation of back pain. Symptoms have been going on for 4 days.Laboratory studies obtained revealing WBC of 11, hemoglobin 13.1; CMP shows pseudohyponatremia at 131 corrected 136. Elevated blood glucose at 434, patient has a history of uncontrolled diabetes. Patient provided medication for pain control in the emergency department along with fluid hydration and insulin. Patient will be discharged home advised follow-up to his primary care provider. Patient is understanding agreeable plan. Patient stable at time of discharge. Case discussed with Dr. Sanabria. Undiagnosed new problem with uncertain prognosis? @ -No Drug Therapy requiring intensive monitoring for toxicity (Heparin, Nitro, Insulin, Cardizem)? @ -No Were any procedures done? @ -No Diagnosis/symptom? @ -Back pain, muscle spasm Acute, or Chronic, or Acute on Chronic? @ -Acute Uncomplicated (without systemic symptoms) or Complicated (systemic symptoms)? @ -Uncomplicated Side effects of treatment? @ -No Exacerbation, Progression, or Severe Exacerbation? @ -No Poses a threat to life or bodily function? How? (Chest pain, USA, MT, pneumonia, PE, COPD, DKA, ARF, appy, cholecystitis, CVA, Diverticulitis, Homicidal, Suicidal, threat to staff... and all critical care pts) @ -No - Lab Data Result diagrams: 12/21/24 15:38 12/21/24 15:38 Lab Results 12/21/24 12/21/24 12/21/24 Range/Units 15:38 15:38 15:38 WBC 11.01 H (4.50-10.00) 10*3/uL RBC 4.62 (4.40-5.60) 10*6/uL Hgb 13.1 (13.0-17.0) g/dL Hct 37.8 L (39.6-50.0) % MCV 81.8 (80.0-97.0) fL MCH 28.4 (27.0-32.0) pg MCHC 34.7 (32.0-37.0) g/dL Plt Count 175 (140-440) 10*3/uL MPV 11.0 (9.5-12.2) fL Immature Gran % (Auto) 0.6 % Neutrophils % 68.6 % Lymphocytes % 23.0 % Monocytes % 6.3 % Eosinophils % 1.3 % Basophils % 0.2 % Immature Gran # 0.07 H (0.00-0.04) 10*3/uL Neutrophils # 7.56 (1.80-7.70) 10*3/uL Lymphocytes # 2.53 (0.90-5.00) 10*3/uL Monocytes # 0.69 (0.20-1.00) 10*3/uL Eosinophils # 0.14 (0.04-0.35) 10*3/uL Basophils # 0.02 (0.00-0.10) 10*3/uL Sodium 131 L (137-145) mmol/L Potassium 4.2 (3.5-5.1) mmol/L Chloride 93 L (98-107) mmol/L Carbon Dioxide 29 (22-30) mmol/L Anion Gap 9 mmol/L BUN 33 H (9-20) mg/dL Creatinine 0.86 (0.66-1.25) mg/dL Est GFR (CKD-EPI)AfAm >90 (>60 ml/min/1.73 sqM) Est GFR (CKD-EPI)NonAf 89 (>60 ml/min/1.73 sqM) Glucose 434 H (74-99) mg/dL POC Glucose (mg/dL) (70-110) mg/dL POC Glu Collar Feller ID Calcium 9.6 (8.4-10.2) mg/dL Total Bilirubin 0.7 (0.2-1.3) mg/dL AST 19 (17-59) U/L ALT 20 (4-49) U/L Alkaline Phosphatase 97 (38-126) U/L Total Protein 6.8 (6.3-8.2) g/dL Albumin 4.0 (3.5-5.0) g/dL Urine Color Colorless Urine Appearance Clear (Clear) Urine pH 5.0 (5.0-8.0) Ur Specific [place] 1.040 H (1.001-1.035) Urine Protein Negative (Negative) Urine Glucose (UA) 4+ H (Negative) Urine Ketones Negative (Negative) Urine Blood Negative (Negative) Urine Nitrite Negative (Negative) Urine Bilirubin Negative (Negative) Urine Urobilinogen <2.0 (<2.0) mg/dL Ur Leukocyte Esterase Negative (Negative) 12/21/24 12/21/24 Range/Units 17:50 19:28 WBC (4.50-10.00) 10*3/uL RBC (4.40-5.60) 10*6/uL Hgb (13.0-17.0) g/dL Hct (39.6-50.0) % MCV (80.0-97.0) fL MCH (27.0-32.0) pg MCHC (32.0-37.0) g/dL Plt Count (140-440) 10*3/uL MPV (9.5-12.2) fL Immature Gran % (Auto) % Neutrophils % % Lymphocytes % % Monocytes % % Eosinophils % % Basophils % % Immature Gran # (0.00-0.04) 10*3/uL Neutrophils # (1.80-7.70) 10*3/uL Lymphocytes # (0.90-5.00) 10*3/uL Monocytes # (0.20-1.00) 10*3/uL Eosinophils # (0.04-0.35) 10*3/uL Basophils # (0.00-0.10) 10*3/uL Sodium (137-145) mmol/L Potassium (3.5-5.1) mmol/L Chloride (98-107) mmol/L Carbon Dioxide (22-30) mmol/L Anion Gap mmol/L BUN (9-20) mg/dL Creatinine (0.66-1.25) mg/dL Est GFR (CKD-EPI)AfAm (>60 ml/min/1.73 sqM) Est GFR (CKD-EPI)NonAf (>60 ml/min/1.73 sqM) Glucose (74-99) mg/dL POC Glucose (mg/dL) 399 H 350 H (70-110) mg/dL POC Glu Collar Feller ID Yesenia Maxwell Calcium (8.4-10.2) mg/dL Total Bilirubin (0.2-1.3) mg/dL AST (17-59) U/L ALT (4-49) U/L Alkaline Phosphatase (38-126) U/L Total Protein (6.3-8.2) g/dL Albumin (3.5-5.0) g/dL Urine Color Urine Appearance (Clear) Urine pH (5.0-8.0) Ur Specific [place] (1.001-1.035) Urine Protein (Negative) Urine Glucose (UA) (Negative) Urine Ketones (Negative) Urine Blood (Negative) Urine Nitrite (Negative) Urine Bilirubin (Negative) Urine Urobilinogen (<2.0) mg/dL Ur Leukocyte Esterase (Negative) Disposition Clinical Impression: Muscle spasm, Strain of lumbar region, Hyperglycemia Disposition: HOME SELF-CARE Condition: Stable Instructions (If sedation given, give patient instructions): Acute Low Back Pain (ED) Additional Instructions: Please take your diabetic medication as prescribed. Utilize your pain medication as needed. Follow up with your doctor. Return to the emergency department for new or worsening symptoms. Prescriptions: Lidocaine 5% Patch [Lidoderm 5% Patch] 1 patch TOPICAL DAILY #30 patch HYDROcodone/APAP 5-325MG [[place] 5-325] 1 tab PO Q6HR PRN 3 Days #12 tab PRN Reason: Pain Is patient prescribed a controlled substance at d/c from ED?: Yes When asked, does pt state using other controlled substances?: No If prescribed controlled substance>3 days was MAPS reviewed?: Prescribed <3 Days Referrals: Jose Muro DO [Primary Care Provider] - 1-2 days
--- NOTE | 2024-12-21 15:33 | CT ---
EXAMINATION TYPE: CT abdomen pelvis wo con DATE OF EXAM: 12/21/2024 COMPARISON: Chest, abdomen and pelvis dated 04/21/2017 CLINICAL INDICATION: Male, 69 years old with history of back pain; [facility], Patient states that he heard his back snap and is now having spasms. TECHNIQUE: CT scan of the abdomen and pelvis is performed without oral or IV contrast. CT DLP: [address] CTDI: mGy Automated exposure control for dose reduction was used. FINDINGS: Within the limitations of a non-contrast study, the following observations are made. There are mild chronic interstitial changes There is a single tiny gallstone but no gallbladder distention, wall thickening or pericholecystic fl uid.. There is no biliary ductal dilatation. There is mild hepatomegaly. There is no abnormality of the pancreas, spleen or adrenal glands. There are no renal calcifications or hydronephrosis. The caliber of the abdominal aorta is normal and there is no retroperitoneal adenopathy or hemorrhage . The bowel loops are normal in caliber is no evidence of obstruction. No inflammatory changes are iden tified in the mesentery and there is no free intraperitoneal air or fluid. There is no pelvic mass, free fluid, abscess or adenopathy. There is mild prostatic hypertrophy. The osseous structures and soft tissues are unremarkable. The lumbar vertebral segments are normal in height and alignment. No fracture or subluxation. IMPRESSION: 1. Tiny single gallstone. 2. Mild prostatic hypertrophy. 3. No acute changes within the abdomen or pelvis. 4. Unremarkable lumbar spine 5. Mild hepatomegaly. [facility], , 12/21/2024 3:30 PM
--- NOTE | 2024-12-21 15:36 | XR ---
EXAMINATION TYPE: XR chest 2V DATE OF EXAM: 12/21/2024 3:14 PM COMPARISON: 08/08/2020 CLINICAL INDICATION: Male, 69 years old with history of cough, TECHNIQUE: XR chest 2V view(s) obtained. FINDINGS: The heart size is normal. The pulmonary vasculature is normal. The lungs are clear. IMPRESSION: 1. No acute pulmonary process. [facility], , 12/21/2024 3:34 PM
[2024-12-21] MEDS: KETOROLAC 15 MG/ML 1 ML VIAL IVP STA (15:47)
[2024-12-21] MEDS: ORPHENADRINE 30 MG/ML 2 ML VIAL IVP STA (15:48)
[2024-12-21] MEDS: LIDOCAINE 4% PATCH TOPICAL ONE ×2 (15:50→16:23)
[2024-12-21 15:51] LABS: Appearance,Urine Clear (Clear); Basophils # (A) 0.02 10*3/uL (0.00-0.10); Basophils % (A) 0.2 %; Bilirubin,Urine Negative (Negative); Blood,Urine Negative (Negative); Color,Urine Colorless; Eosinophils # (A) 0.14 10*3/uL (0.04-0.35); Eosinophils % (A) 1.3 %; Glucose,Urine (UA) 4+ (Negative); HCT 37.8 % (39.6-50.0); HGB 13.1 g/dL (13.0-17.0); Ketones,Urine Negative (Negative); Leukocyte Esterase,Urine Negative (Negative); Lymphocytes # (A) 2.53 10*3/uL (0.90-5.00); MCH 28.4 pg (27.0-32.0); MCHC 34.7 g/dL (32.0-37.0); MCV 81.8 fL (80.0-97.0); Monocytes # (A) 0.69 10*3/uL (0.20-1.00); Monocytes % (A) 6.3 %; Neutrophils # (A) 7.56 10*3/uL (1.80-7.70); Neutrophils % (A) 68.6 %; Nitrite,Urine Negative (Negative); Platelet Count 175 10*3/uL (140-440); Protein,Urine Negative (Negative); RBC 4.62 10*6/uL (4.40-5.60); RDW 13.1 % (11.5-14.5); Urobilinogen,Urine <2.0 mg/dL (<2.0); WBC 11.01 10*3/uL (4.50-10.00)
[2024-12-21 16:07] LABS: ALT 20 U/L (4-49); AST 19 U/L (17-59); African American GFR (CKD) >90 (>60 ml/min/1.73 sqM); Alkaline Phosphatase 97 U/L (38-126); Anion Gap 9 mmol/L; Blood Urea Nitrogen 33 mg/dL (9-20); Calcium 9.6 mg/dL (8.4-10.2); Carbon Dioxide 29 mmol/L (22-30); Chloride 93 mmol/L (98-107); Glucose 434 mg/dL (74-99); Non-African American GFR(CKD) 89 (>60 ml/min/1.73 sqM); Potassium 4.2 mmol/L (3.5-5.1); Sodium 131 mmol/L (137-145); Total Bilirubin 0.7 mg/dL (0.2-1.3); Total Protein 6.8 g/dL (6.3-8.2)
[2024-12-21] MEDS: SODIUM CHLORIDE 0.9% 1,000 ML IV ONE ×2 (16:21→17:53)
[2024-12-21 17:51] LABS: Glucose,Whole Blood 399 mg/dL (70-110)
[2024-12-21] MEDS: INSULIN LISPRO (HumaLOG) 100 UNIT/ML 10 mL VL SQ ONE (17:52)
[2024-12-21 19:30] LABS: Glucose,Whole Blood 350 mg/dL (70-110)
[2024-12-21 19:55] VITALS: BP 141/77; PULSE 63; TEMP 97.7
== END 2024-12-21 19:55 | disposition home or self-care (01) ==
LOC: EC 13:28
DX: S39.012A Strain of muscle, fascia and tendon of lower back, initial encounter (principal); E11.65 Type 2 diabetes mellitus with hyperglycemia; F17.200 Nicotine dependence, unspecified, uncomplicated; Z79.84 Long term (current) use of oral hypoglycemic drugs; X58.XXXA Exposure to other specified factors, initial encounter
CPT/HCPCS: 36415; 80053; 85025; 81003; 71046; 74176; 99284; 96374; 96375; 96361 ×2; J2360; J1885